=== PATIENT | male | born 1940 | race Two or more races ===

== ENCOUNTER 2021-08-16 02:13 | Emergency (ER) | payer MEDICARE ==
[~2021-08-16] VITALS: Ht 170.2 cm; Wt 77.0 kg
--- NOTE | 2021-08-16 02:28 | PHYS DOC ---
General Adult EDM: Chief Complaint: SHORTNESS OF BREATH HPI: HPI: 81-year-old male presents via EMS from home with shortness of breath. The patient has been having worsening shortness of breath the last 2 days. It was much worse tonight so he decided to come to the emergency room. He feels like he is wheezing. He had prostate surgery with a went through his abdomen about 7 weeks ago. He tells me that his abdomen feels more distended and uncomfortable. He believes that it is pushing up on his lungs. Patient denies history of COPD or other pulmonary problems. He has only gotten 1 vaccine for Covid, Moderna. When EMS arrived they found the patient's oxygen saturation to be in the 80s. He improved to 92% on 4 L. The patient is not normally on oxygen. Review of Systems: Review of Systems: Constitutional: Denies fever or chills Eyes: Denies change in visual acuity HENT: Denies nasal congestion or sore throat Respiratory: shortness of breath Cardiovascular: Denies chest pain or edema GI: Abdominal distension. Denies abdominal pain, nausea, vomiting, bloody stools or diarrhea : Denies dysuria Musculoskeletal: Denies back pain or joint pain Integument: Denies rash Neurologic: Denies headache, focal weakness or sensory changes Endocrine: Denies polyuria or polydipsia Lymphatic: Denies swollen glands Psychiatric: Denies depression or anxiety Physical Exam: PE: Constitutional: Well developed, well nourished, no acute distress, non-toxic appearance. [] HENT: Normocephalic, atraumatic, bilateral external ears normal, oropharynx moist, no oral exudates, nose normal. [] Eyes: PERRLA, EOMI, conjunctiva normal, no discharge. [] Neck: Normal range of motion, no tenderness, supple, no stridor. [] Cardiovascular: Heart rate regular rhythm, no murmur [] Lungs & Thorax: Bilateral breath sounds diminished with expiratory wheezing throughout [] Abdomen: Bowel sounds normal, soft, no tenderness, no masses, no pulsatile masses. Recent surgical scars well-healed. [] Skin: Warm, dry, no erythema, no rash. [] Back: No tenderness, no CVA tenderness. [] Extremities: No tenderness, no cyanosis, no clubbing, ROM intact, no edema. [] Neurologic: Alert and oriented X 3, normal motor function, normal sensory function, no focal deficits noted. [] Psychologic: Affect normal, judgement normal, mood normal. [] EKG: EKG: Sinus rhythm, rate 107, rightward axis, no ST elevation or depression, right bundle branch block, left anterior fascicular block. [] Radiology/Procedures: Radiology/Procedures: [] Impressions: EXAMINATION: XR CHEST 1V CLINICAL HISTORY: Shortness of breath EXAM DATE/TIME: 08/16/2021 3:45 AM COMPARISON: None FINDINGS: Lines, Tubes, and Devices: None. Cardiomediastinal Silhouette: Cardiomegaly. Aortic atherosclerotic calcification. Lungs and Pleura: Nonspecific diffuse interstitial prominence. No focal airspace consolidation or pleural effusion. Bones and Soft Tissues: Degenerative changes in the thoracic spine. IMPRESSION: Nonspecific diffuse interstitial prominence, possibly chronic or related to edema versus atypical infection. Cardiomegaly. Electronically signed by: Gene Gooden DO (08/16/2021 5:11 AM) [facility] DICTATED AND SIGNED BY: GENE GOODEN DO DATE: 08/16/21 0510 CC: MARYANNE YE DO; PCP,UNKNOWN ~MTH0 0 EXAMINATION: CT ABDOMEN+PELVIS W CLINICAL HISTORY: Abdominal distention, 7 weeks status post prostate surgery TECHNIQUE: CT of the abdomen and pelvis was performed using standard technique, scanning from just above the dome of the diaphragm to the symphysis pubis following administration of intravenous contrast. CT Dose Reduction Employed: One or more of the following individualized dose reduction techniques were utilized for this examination: 1. Automated exposure control 2. Adjustment of the mA and/or kV according to patient size 3. Use of iterative reconstruction technique. COMPARISON: None FINDINGS: Partially visualized cardiomegaly. Bibasilar subsegmental atelectasis and/or scarring. 1.9 cm cyst posterolateral left lung base. Moderately distended gallbladder with cholelithiasis. Liver, pancreas, spleen, and adrenal glands unremarkable. Small nonobstructive left renal calculus. 3.3 cm posterior inferior bladder diverticulum. Mildly distended urinary bladder with diffuse bladder wall prominence. Ill-defined soft tissue thickening in the expected region of the prostate, likely postsurgical changes. No bowel dilation or definite wall thickening. Mild rectal stool retention. Appendix not definitively visualized. No pneumoperitoneum or significant intraperitoneal free fluid. Arterial atherosclerotic calcification without aneurysm. 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 Small T11 and T12 vertebral hemangiomas. Multilevel thoracolumbar degenerative changes with minimal L4-5 anterolisthesis. IMPRESSION: No definitive evidence of acute abdominopelvic abnormality. 3.3 cm bladder diverticulum. Mild diffuse bladder wall thickening, and ill-defined soft tissue thickening in the expected region of the prostate, possibly related to postsurgical changes. Mild rectal stool retention, correlate for impaction. Additional nonacute findings as described. Electronically signed by: Gene Gooden DO (08/16/2021 5:10 AM) [facility] DICTATED AND SIGNED BY: EGNE GOODEN DO DATE: 08/16/21456 CC: MARYANNE YE DO; PCP,UNKNOWN ~MTH0 0 Heart Score: C/O Chest Pain: No Risk Factors: Risk Factors: DM, Current or recent (<one month) smoker, HTN, HLP, family history of CAD, obesity. Risk Scores: Score 0 - 3: 2.5% MACE over next 6 weeks - Discharge Home Score 4 - 6: 20.3% MACE over next 6 weeks - Admit for Clinical Observation Score 7 - 10: 72.7% MACE over next 6 weeks - Early Invasive Strategies Course & Med Decision Making: Course & Med Decision Making Pertinent Labs and Imaging studies reviewed. (See chart for details) The patient's EKG is significant for a bifascicular block, but no other significant findings. He is wheezing on exam I will treat him with Decadron and DuoNeb. The patient will be tested for COVID-19. The patient's labs are unremarkable. Initial text x-ray showed some interstitial prominence. See official read for more details. CT of abdomen and pelvis does not show any significant acute findings. The patient does appear to be constipated. After the DuoNeb treatment, the patient was able to maintain oxygen saturation of 95% on room air. He had no further respiratory distress. The patient is feeling much better at this time. I have advised that he take a laxative such as Dulcolax to move more stool. I will also discharge him with a prescription for Keflex for possible UTI and will give him an albuterol inhaler in the ED. He is stable for discharge at this time. [] Dragon Disclaimer: Dragon Disclaimer: This electronic medical record was generated, in whole or in part, using a voice recognition dictation system. Departure Departure: Impression: Primary Impression: COPD exacerbation Additional Impressions: Constipation Qualified Codes: K59.01 - Slow transit constipation UTI (urinary tract infection) Qualified Codes: N30.01 - Acute cystitis with hematuria Disposition: HOME / SELF CARE / HOMELESS Condition: IMPROVED Patient Instructions: Chronic Obstructive Pulmonary Disease Exacerbation, Liuy-ny-Urol Scripts Cephalexin (CEPHALEXIN) 500 Mg Tablet 1 TAB PO TID for UTI for 5 Days, #15 TAB Prov: MARYANNE YE DO 08/16/21 Prednisone (PREDNISONE) 50 Mg Tablet 1 TAB PO DAILY for COPD exacerbation for 3 Days, #3 TAB Prov: MARYANNE YE DO 08/16/21 MARYANNE YE DO Aug 16, 2021 02:28
[2021-08-16] MEDS: IPRATRPIUM/ALBUTEROL 0.5/2.5MG 3 ML NEBU. NEB ONE (02:30)
[2021-08-16 03:14] LABS: BASO % 0 % (0-3); EOS # 0.7 x10^3/uL (0.0-0.7); EOS % 7 % (0-3); HEMATOCRIT 43.8 % (39.0-53.0); HEMOGLOBIN 14.3 g/dL (13.0-17.5); LYMPH # 1.7 x10^3/uL (1.0-4.8); LYMPH % 16 % (24-48); MEAN CORPUSCULAR HEMOGLOBIN 30 pg (25-35); MEAN CORPUSCULAR HGB CONC 33 g/dL (31-37); MEAN CORPUSCULAR VOLUME 93 fL (79-100); MONO # 0.8 x10^3/uL (0.0-1.1); MONO % 7 % (0-9); NEUT # 7.4 x10^3uL (1.8-7.7); NEUT % 70 % (31-73); PLATELET COUNT 236 x10^3/uL (140-400); RED BLOOD COUNT 4.73 x10^6/uL (4.30-5.70); RED CELL DISTRIBUTION WIDTH 15.5 % (11.5-14.5); WHITE BLOOD COUNT 10.7 x10^3/uL (4.0-11.0)
[2021-08-16 03:26] LABS: BILIRUBIN,URINE NEG (NEG); CLARITY,URINE CLOUDY; COLOR,URINE YELLOW; GLUCOSE,URINE NEG (NEG); NITRITE,URINE NEG (NEG); RBC,URINE 20-40 /HPF (0-2); UROBILINOGEN,URINE 0.2 mg/dL (0.2 mg/dL)
[2021-08-16 03:27] LABS: BACTERIA,URINE FEW /HPF (0-FEW); SQUAMOUS EPITHELIAL CELL,UR FEW /LPF; WBC,URINE >40 /HPF (0-4)
[2021-08-16 03:28] LABS: CALCIUM 9.3 mg/dL (8.5-10.1); CREATININE 0.9 mg/dL (0.7-1.3); GFR 80.8; POTASSIUM 4.6 mmol/L (3.5-5.1)
[2021-08-16 03:34] LABS: ALBUMIN 3.7 g/dL (3.4-5.0); ALBUMIN/GLOBULIN RATIO 0.8 (1.0-1.7); TOTAL BILIRUBIN 0.6 mg/dL (0.2-1.0); TOTAL PROTEIN 8.3 g/dL (6.4-8.2)
[2021-08-16] MEDS ORDERED: DEXAMETHASONE SOD PHOS 10 MG/ML VIAL. ONE (03:41)
[2021-08-16] MEDS: DEXAMETHASONE SOD PHOS 10 MG/ML VIAL. IVP ONE (03:43)
[2021-08-16] MEDS ORDERED: CONTRAST GIVEN. MC PRN (03:45)
[2021-08-16] MEDS: IOHEXOL 300 MG/ML 75 ML VIAL. IV ONE (03:51)
--- NOTE | 2021-08-16 05:12 | RAD ---
EXAMINATION: CT ABDOMEN+PELVIS W CLINICAL HISTORY: Abdominal distention, 7 weeks status post prostate surgery TECHNIQUE: CT of the abdomen and pelvis was performed using standard technique, scanning from just ab ove the dome of the diaphragm to the symphysis pubis following administration of intravenous contrast . CT Dose Reduction Employed: One or more of the following individualized dose reduction techniques wer e utilized for this examination: 1. Automated exposure control 2. Adjustment of the mA and/or kV ac cording to patient size 3. Use of iterative reconstruction technique. COMPARISON: None FINDINGS: Partially visualized cardiomegaly. Bibasilar subsegmental atelectasis and/or scarring. 1.9 cm cyst po sterolateral left lung base. Moderately distended gallbladder with cholelithiasis. Liver, pancreas, spleen, and adrenal glands unr emarkable. Small nonobstructive left renal calculus. 3.3 cm posterior inferior bladder diverticulum. Mildly distended urinary bladder with diffuse bladder wall prominence. Ill-defined soft tissue thickening in the expected region of the prostate, likely p ostsurgical changes. No bowel dilation or definite wall thickening. Mild rectal stool retention. Appendix not definitively visualized. No pneumoperitoneum or significant intraperitoneal free fluid. Arterial atherosclerotic calcification without aneurysm. 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 Small T11 and T12 vertebral hemangiomas. Multilevel thoracolumbar degenerative changes with minimal L 4-5 anterolisthesis. IMPRESSION: No definitive evidence of acute abdominopelvic abnormality. 3.3 cm bladder diverticulum. Mild diffuse bladder wall thickening, and ill-defined soft tissue thickening in the expected region o f the prostate, possibly related to postsurgical changes. Mild rectal stool retention, correlate for impaction. Additional nonacute findings as described. Electronically signed by: Gene Price DO (08/16/2021 5:10 AM) [facility]
--- NOTE | 2021-08-16 05:14 | RAD ---
EXAMINATION: XR CHEST 1V CLINICAL HISTORY: Shortness of breath EXAM DATE/TIME: 08/16/2021 3:45 AM COMPARISON: None FINDINGS: Lines, Tubes, and Devices: None. Cardiomediastinal Silhouette: Cardiomegaly. Aortic atherosclerotic calcification. Lungs and Pleura: Nonspecific diffuse interstitial prominence. No focal airspace consolidation or ple ural effusion. Bones and Soft Tissues: Degenerative changes in the thoracic spine. IMPRESSION: Nonspecific diffuse interstitial prominence, possibly chronic or related to edema versus atypical inf ection. Cardiomegaly. Electronically signed by: Gene Price DO (08/16/2021 5:11 AM) [facility]
[2021-08-16 05:16] VITALS: BP 164/91
[2021-08-16] MEDS ORDERED: PRED50TA PO (05:21)
[2021-08-16] MEDS ORDERED: CEPH500T PO (05:34)
[2021-08-16] MEDS: CEPHALEXIN 250 MG CAPSULE PO ONE (05:41)
[2021-08-16] MEDS: ALBUTEROL SULFATE 8GM INHALER. INH ONE (05:41)
[2021-08-16] MEDS ORDERED: NITR100C62 PO (06:02)
--- NOTE | 2021-08-16 13:56 | EKG ---
[address] [address] Test Date: 2021-08-16 Test Time: 02:22:50 Pat Name: EUGENE OLSEN Department: Room: Gender: M Rod Straightener: ESTEPHANIE : 1940 Requested By: MARYANNE YE Order Number: [id number] Reading MD: Kev Ken MD Measurements Intervals [place] Rate: 107 P: -90 [place]: 112 QRS: 257 QRSD: 136 T: 51 QT: 350 QTc: 473 Interpretive Statements SR RBBB LAFB Electronically Signed On 08-16-2021 15:03:22 CDT by Kev Ken MD
== END 2021-08-16 06:15 | disposition home or self-care (01) ==
LOC: ER 02:13
DX: J44.1 Chronic obstructive pulmonary disease with (acute) exacerbation (principal); K59.01 Slow transit constipation; N30.01 Acute cystitis with hematuria; Z20.822 Contact with and (suspected) exposure to COVID-19
CPT/HCPCS: 36415; 71045; 74177; 80053; 81001; 83605; 84484; 85025; 87040; 87086; 93005; 94640; 96374; 99285; C9803; J1100; Q9967; U0003; 94664